=== PATIENT | female | born 1960 | race Caucasian/White ===

== ENCOUNTER 2020-01-23 16:21 | Outpatient (REF) | payer OTHER, SELFPAY | END 2020-01-23 16:22 | disposition home or self-care (01) | LOC: HO.LAB 16:21 | PROVIDERS: Visit Provider Internal Medicine | DX: Z20.828 Contact with and (suspected) exposure to other viral communicable diseases (principal) | CPT/HCPCS: 87635 ==

== ENCOUNTER 2020-01-30 12:37 | Outpatient (REF) | payer OTHER, SELFPAY | END 2020-01-30 12:38 | disposition home or self-care (01) | LOC: HO.LAB 12:37 | PROVIDERS: PCP Internal Medicine; Visit Provider Internal Medicine | DX: Z20.828 Contact with and (suspected) exposure to other viral communicable diseases (principal) | CPT/HCPCS: U0003 ==

== ENCOUNTER 2020-04-23 06:08 | Outpatient (REF) | payer OTHER, SELFPAY | END 2020-04-23 06:09 | disposition home or self-care (01) | LOC: HO.LAB 06:08 | PROVIDERS: Visit Provider Internal Medicine | DX: Z20.822 Contact with and (suspected) exposure to COVID-19 (principal) | CPT/HCPCS: 36415; C9803; U0003 ==

== ENCOUNTER 2020-11-09 08:35 | Outpatient (REF) | payer OTHER, SELFPAY ==
--- NOTE | ~2020-11-09 | XR_ITS ---
EXAMINATION: XR SHOULDER, LEFT CLINICAL INFORMATION: M25.512 - Pain in left shoulder COMPARISON: None TECHNIQUE: Left shoulder is imaged in 3 views. FINDINGS: There is bulky calcific tendinosis in region of distal superior rotator cuff measuring approximately 2.5 cm in length. There is no fracture, dislocation, destructive process. The glenohumeral joint appears normal. The acromioclavicular alignment is normal. XR/XR shoulder LT min 2V IMPRESSION: Bulky calcific tendinosis distal superior rotator cuff.
== END 2020-11-09 08:36 | disposition home or self-care (01) ==
LOC: HO.HMGCX 08:35
PROVIDERS: PCP Internal Medicine; Visit Provider Hospitalist
DX: M25.512 Pain in left shoulder (principal)
CPT/HCPCS: 73030

== ENCOUNTER 2020-11-29 08:36 | Outpatient (REF) | payer OTHER, SELFPAY ==
--- NOTE | ~2020-11-29 | XR_ITS ---
EXAMINATION: XR RIBS, RIGHT CLINICAL INFORMATION: R07.81 - Pleurodynia COMPARISON: Chest radiographs 03/24/2018 TECHNIQUE: Frontal view chest and 3 views of the right ribs are obtained for a total of 4 views. FINDINGS: There is no visible rib fracture or rib destructive process. The lungs are clear. There is no pneumothorax, pleural reaction, airspace consolidation, or effusion. The costophrenic sulci are clear. The heart is within normal size. The hilar and mediastinal contours are normal. XR/XR ribs RT min 3V w CXR1V IMPRESSION: Unremarkable examination.
== END 2020-11-29 08:37 | disposition home or self-care (01) ==
LOC: HO.HMGCX 08:36
PROVIDERS: PCP Internal Medicine; Visit Provider Hospitalist
DX: Z13.89 Encounter for screening for other disorder (principal)
CPT/HCPCS: 71101

== ENCOUNTER 2021-01-22 06:03 | Outpatient (REF) | payer OTHER, SELFPAY ==
[2021-01-22 07:30] LABS: Hematocrit 40.8 % (37-47); Hemoglobin 13.1 g/dl (12.0-16.0); Mean Corpuscular HGB Conc 32.1 g/dl (31.0-35.0); Mean Corpuscular Hemoglobin 28.9 pg (27.0-33.0); Mean Corpuscular Volume 89.9 fL (80-98); Mean Platelet Volume 9.3 fL (9.4-12.3); Platelet Count 335 X10*3/uL (160-400); Red Blood Count 4.54 X10*6/uL (4.20-5.50); Red Cell Distribution Width 12.5 % (11.0-16.0); White Blood Count 7.1 X10*3/uL (4.8-10.8)
[2021-01-22 07:49] LABS: Alanine Aminotransferase 8 U/L (0-31); Albumin Level 4.3 g/dL (3.5-5.0); Alkaline Phosphatase 56 U/L (39-117); Anion Gap 12 (12-20); Aspartate Amino Transferase 17 U/L (5-31); Bilirubin Total 0.6 mg/dL (0.0-1.0); Blood Urea Nitrogen 10 mg/dL (9-16); Calcium 9.4 mg/dL (8.4-10.2); Carbon Dioxide 28 mmol/L (22-29); Chloride 103 mmol/L (96-108); Cholesterol 189 mg/dL; Estimated Glomerular Filt Rate > 60; Glucose Fasting 87 mg/dL (60-99); HDL Cholesterol 39 mg/dL; LDL Cholesterol Calculated 127 mg/dl; Potassium 4.3 mmol/L (3.3-5.1); Sodium 139 mmol/L (135-145); Total Protein 7.1 g/dL (6.5-8.0); Triglycerides 117 mg/dL
== END 2021-01-22 06:04 | disposition home or self-care (01) ==
LOC: HO.LAB 06:03
PROVIDERS: PCP Internal Medicine; Visit Provider Internal Medicine
DX: Z00.00 Encounter for general adult medical examination without abnormal findings (principal); M85.80 Other specified disorders of bone density and structure, unspecified site; Z53.20 Procedure and treatment not carried out because of patient's decision for unspecified reasons
CPT/HCPCS: 36415; 80053; 80061; 85027

== ENCOUNTER 2023-05-21 08:45 | Outpatient (AMB) | payer OTHER, SELFPAY ==
--- NOTE | 2023-05-21 08:52 | MHC.OFFVIS ---
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 She is doing well with no concerns: she thinks she has a prolapse, feeling vaginal pressure, no leakage of urine. Attempting to eat a healthy diet with calcium and vitamin D and stays active with exercise, including Yoga. Currently not sexually active. Denies any vaginal dryness or irritation. STI testing offered; she declines. Last pap smear; 2019. Last mammogram; 2021. Colonoscopy is UTD. Denies any family history of breast, ovarian or colon cancer. She is regular dermatology skin checks. [facility], [facility] Medical History Colonoscopy refused Osteopenia Normal breast exam Normal colonoscopy Normal gynecologic examination Osteoarthritis of shoulders, bilateral Surgical History (Updated 05/21/23 @ 09:05 by Sandy Sullivan CNM) H/O LEEP Tubal ligation status Social History (Updated 05/21/23 @ 08:58 by CAROLE Souza) Household Members Other:: lives with [facility], Housing: House Patient Tobacco Use Status: Former Tobacco user Years Smoked: 30 yrs e-Cigarette/Vaping Use: Never Used service: No Current occupational status: employed Cognitive needs: No Hearing needs: No Vision needs: Yes Female Reproductive History Menstrual control method: permanent sterilization Permanent Sterilization: BTL Menopause type: natural Total pregnancies: 2 Full term: 2 Number of Living Children: 2 Date of last pap smear: 10/23/21 (neg pap and hpv) History of abnormal pap smear: Yes (hx leep 1996) Review of Systems Const All systems reviewed & are unremarkable except as noted in HPI and below Reports as per HPI Eyes Reports no additional complaints ENT Reports no additional complaints Card Reports no additional complaints Resp Reports no additional complaints GI Reports as per HPI and Reports no additional complaints Reports as per HPI Musc Reports no additional complaints Skin/Breast Reports as per HPI Neuro Reports no additional complaints Psych Reports no additional complaints Endo Reports no additional complaints Rey/Lymph Reports no additional complaints Aller/Immun Reports no additional complaints Physical Exam Vital Signs: Last Vital Signs BP 120/76 05/21/23 08:57 BMI result Body Mass Index 25.8 Const General: cooperative, healthy appearing, no acute distress, well developed and alert Orientation/consciousness: patient oriented x3 HEENT Head: Yes normal to inspection Eyes General: appearance normal, both eyes and all related structures Neck Neck: Yes normal visual inspection Thyroid: Thyroid normal Chest Chest palpation & inspection: normal inspection of the chest and other (no puckering, dimpling, peau de orange, retraction, discharge, masses) Breast/axilla inspection: normal inspection of the breasts Breast/axilla palpation: normal palpation of the breasts Resp Effort & Inspection: normal respiratory effort GI Inspection: Yes normal to inspection Palpation (GI): Soft to palpation Rectal Exam - Female: deferred General: Yes bladder normal to palpation External Female Exam: normal external appearance and normal appearance of the urethra Speculum Exam - Vagina: normal appearance of the vagina, normal palpation, normal vaginal discharge and vagina atrophic Speculum Exam - Cervix: normal appearance of the cervix and normal palpation Bimanual exam- vagina & uterus: normal bimanual exam, normal palpation, uterine size normal, bladder normal to palpation, normal palpation and non-tender Bimanual Exam- Adnexa, other: no masses and cystocele Skin General skin exam: no rashes or lesions noted Rashes: no rashes Neuro General: patient oriented x3 Cognition (Neuro): normal cognition Extrem General: Yes normal to inspection Psych Attitude: cooperative Thought process: Normal thought process present Assessment & Plan Assessment & Plan (1) Encounter for well woman exam with routine gynecological exam: Code(s): Z01.419 - Encounter for gynecological examination (general) (routine) without abnormal findings Plan Discussed: Current recommendations for pap smears per ASCCP guidelines. Breast awareness, periodic self breast exams and yearly mammogram. Maintain a healthy lifestyle, well balanced diet including Calcium 1,200 mg and Vitamin D 600 IU daily, and routine exercise. Discussed referral to uro Gyne for consultation regarding mild cystocele and her vaginal pressure. She is in the midst of changing jobs and getting a new insurance and agrees to call the office if needing a referral. Advised to consider pelvic floor strengthening as another alternative she is happy with that approach instead of surgical consult. Use of condoms for STI prevention if indicated. Contact the office with any postmenopausal bleeding. Patient verbalizes understanding and agrees to the plan of care. She was given opportunity to ask questions and all questions were answered to the best of my ability. RTO in 1 year for annual horologist apprentice exam. This note is constructed using voice recognition software. While every effort has been made to ensure accuracy, records management clerk errors may have been included. Orders: Orders MM tomosynthesis screening BI Today Z12.31 - Encounter for screening mammogram for malignant neoplasm of breast Coding Level of Care Code New Pt Prev Care 40-64y(52377) Diagnoses Encounter for well woman exam with routine gynecological exam Z01.419
[2023-05-21 08:57] VITALS: BP 120/76; BMI 25.8
== END 2023-05-21 09:23 | disposition home or self-care (01) ==
PROVIDERS: PCP Internal Medicine; Visit Provider Advanced Practice Midwife
DX: Z01.419 Encounter for gynecological examination (general) (routine) without abnormal findings (principal)
CPT/HCPCS: 99386

== ENCOUNTER → 2023-05-21 08:45 | Outpatient (BNVA) | payer OTHER, SELFPAY | PROVIDERS: PCP Internal Medicine; Visit Provider Advanced Practice Midwife | DX: Z01.419 Encounter for gynecological examination (general) (routine) without abnormal findings (principal) | CPT/HCPCS: 99386 ==

== ENCOUNTER 2023-06-25 07:39 | Outpatient (REF) | payer OTHER, SELFPAY | END 2023-06-25 07:40 | disposition home or self-care (01) | LOC: HO.MAMMO 07:39 | PROVIDERS: PCP Internal Medicine; Visit Provider Advanced Practice Midwife | DX: Z12.31 Encounter for screening mammogram for malignant neoplasm of breast (principal) | CPT/HCPCS: 77063; 77067 ==

== ENCOUNTER → 2023-06-25 08:00 | Outpatient (BNV) | payer OTHER, SELFPAY | PROVIDERS: PCP Internal Medicine; Visit Provider Radiology Diagnostic Radiology | DX: Z12.31 Encounter for screening mammogram for malignant neoplasm of breast (principal) | CPT/HCPCS: 77063; 77067 ==

== ENCOUNTER 2023-08-14 09:11 | Outpatient (AMB) | payer BC, SELFPAY ==
--- NOTE | 2023-08-14 09:29 | A.OFFPC_ITS ---
Vital Signs 08/14/23 09:31 Height 5 ft 2 in Weight 141 lb BMI 25.8 BP 122/80 Blood Pressure Location Rt brachial Position Sitting Pulse 75 Pulse Source Pulse Oximeter Pulse Oximetry (%) 96 Oxygen Delivery Method Room Air Intake Visit Reasons: PE Intake Note: Pt is here today for PE. Allergies shellfish Allergy (Unknown, Uncoded 08/14/23 09:32) anaphylaxis Shellfish- Scallops Allergy (Unknown, Uncoded 08/14/23 09:32) anaphylaxis Medication List - Last Reconciled 08/14/23 by Kelly Ruffin MD albuterol sulfate 90 mcg/actuation 2 puffs inhalation Q6H PRN fluticasone propionate 50 mcg/actuation (Flonase Allergy Relief) 1 spray intranasal DAILY Tobacco use date assessed: 08/14/23 Dental Screening Dental Screen Date: 08/14/23 Did you have a dental visit in the last 12 months?: Yes Did you have a dental problem in the last 6 months where you did not have access to dental care?: No Was dental information given to patient?: Patient has dentist HPI PE HPI Details Pt presents for PE. PFSH Medical History Colonoscopy refused Osteopenia Normal breast exam Normal colonoscopy Normal gynecologic examination Osteoarthritis of shoulders, bilateral Surgical History H/O LEEP Tubal ligation status Social History Household Members Other:: lives with [facility], Housing: House Patient Tobacco Use Status: Former Tobacco user Years Smoked: 30 yrs e-Cigarette/Vaping Use: Never Used service: No Current occupational status: employed Cognitive needs: No Hearing needs: No Vision needs: Yes Questionnaire PHQ-9 Over the last 2 weeks, how often have you been bothered by any of the following problems? 1. Little interest or pleasure in doing things: not at all 2. Feeling down, depressed, or hopeless: not at all 3. Trouble falling or staying asleep, or sleeping too much: nearly every day 4. Feeling tired or having little energy: nearly every day 5. Poor appetite or overeating: not at all 6. Feeling bad about yourself - or that you are a failure or have let yourself or your family down: not at all 7. Trouble concentrating on things, such as reading the newspaper or watching television: not at all 8. Moving or speaking so slowly that other people could have noticed. Or the opposite - being so fidgety or restless that you have been moving around a lot more than usual: not at all 9. Thoughts that you would be better off or of hurting yourself in some way: not at all Total score: 6 Depression Screening Interpretation: Negative Depression Screening Done: Yes Source: Developed by Drs. Esvin Rodriguez, Lisbet Upton, Deni Caceres and colleagues, with an educational juan m from [employer]. Thrive Questionnaire Date Thrive assessed: 08/14/23 I am a: Patient What is your living situation today?: I have a steady place to live Within the past 12 months, did the food you bought not last and you didn't have the money to get more?: Never true Within the past 12 months, did you worry whether your food would run out before you got money to buy more?: Never true Do you have trouble paying for medicines?: No Do you have trouble getting transportation to medical appointments?: No Do you have trouble paying your heating and electricity bill?: No Do you have trouble taking care of your child, family member or friend?: No Do you have trouble with day-to-day activities such as bathing, preparing meals, shopping, managing finances, etc.?: No Are you currently unemployed and looking for a job?: No Are you interested in more education?: No Please select the resources that you would like help with: None THRIVE Score: 0 AUDIT C Alcohol Use Questionnaire (AUDIT-C) 1. How often do you have a drink containing alcohol?: Never 3. How often do you have six or more drinks on one occasion?: Never Total Score: 0 JOB-7 AMB Questionnaire JOB-7 Date JOB - 7 assessed: 08/14/23 Feeling nervous, anxious, or on edge: 0 = Not at all Not being able to stop or control worryin = Not at all Worrying too much about different things: 0 = Not at all Trouble relaxin = Not at all Being so restless that it is hard to sit still: 0 = Not at all Becoming easily annoyed or irritable: 0 = Not at all Feeling afraid as if something awful might happen: 0 = Not at all Total JOB-7 score (0-4 normal; 5-9 mild; 10-14 moderate; 15-21 severe): 0 Source: Developed by Drs. Esvin Rodriguez, Lisbet Upton, Deni Caceres and colleagues, with an educational juan m from [employer]. Review of Systems Const All systems reviewed & are unremarkable except as noted in HPI and below Reports no additional complaints Eyes Reports no additional complaints ENT Reports no additional complaints Card Reports no additional complaints Resp Reports no additional complaints GI Reports no additional complaints Reports no additional complaints Physical exam (Primary Care) Vital Signs: Last Vital Signs Pulse 75 08/14/23 09:31 BP 122/80 08/14/23 09:31 Pulse Ox 96 08/14/23 09:31 Oxygen Delivery Method Room Air 08/14/23 09:31 BMI result Body Mass Index 25.8 Tobacco/Smoking Status: Tobacco use Status Tobacco use date assessed 08/14/23 08/14/23 09:36 Patient Tobacco Use Status Former Tobacco user 08/14/23 09:30 e-Cigarette/Vaping Use Never Used 08/14/23 09:30 PHQ-9: PHQ-9 Score PHQ-9: Total score 6 08/14/23 09:36 Depression Screening Interpretation: Negative Thrive Assessment: Date of Thrive Assessment Date Thrive assessed 08/14/23 08/14/23 09:36 Const General: no acute distress HENMT Head: Yes normal to inspection Ears: hearing grossly normal bilaterally Face and sinus: Yes normal facial exam Mouth: Normal oral and palatal mucosa present Throat: Yes posterior oropharynx normal Eyes General: appearance normal, both eyes and all related structures Neck Neck: Yes supple Resp Effort & Inspection: normal respiratory effort Auscultation: clear to auscultation bilaterally Cardio Rhythm: regular rhythm Heart sounds: S1 normal heart sound present and S2 normal heart sound present GI Inspection: Yes normal to inspection Palpation (GI): Soft to palpation Percussion: Yes normal to percussion Auscultation: normal bowel sounds Assessment and Plan Assessment & Plan (1) Annual physical exam: Comment: [facility] Code(s): Z00.00 - Encounter for general adult medical examination without abnormal findings Plan: Well-balanced diet regular physical activity discussed with the patient she is up-to-date with the mammogram and Pap smear by coal pulverizing operator. Patient declined colonoscopy Cologuard will be sent. She will return for fasting blood work (2) Osteopenia: Comment: DEXA by coal pulverizing operator Code(s): M85.80 - Other specified disorders of bone density and structure, unspecified site Plan: Continue vitamin-D supplement regular physical activity. (3) Colonoscopy refused: Comment: Cologuard ordered 07/2023 Code(s): Z53.20 - Procedure and treatment not carried out because of patient's decision for unspecified reasons Orders: Orders Complete Blood Count Auto Diff Today M85.80 - Other specified disorders of bone density and structure, unspecified site, Z00.00 - Encounter for general adult medical examination without abnormal findings, Z53.20 - Procedure and treatment not carried out because of patient's decision for unspecified reasons Comprehensive [place]. Panel Fast Today M85.80 - Other specified disorders of bone density and structure, unspecified site, Z00.00 - Encounter for general adult medical examination without abnormal findings, Z53.20 - Procedure and treatment not carried out because of patient's decision for unspecified reasons Lipid Panel Today M85.80 - Other specified disorders of bone density and structure, unspecified site, Z00.00 - Encounter for general adult medical examination without abnormal findings, Z53.20 - Procedure and treatment not carried out because of patient's decision for unspecified reasons TSH reflex Free T4 Today M85.80 - Other specified disorders of bone density and structure, unspecified site, Z00.00 - Encounter for general adult medical examination without abnormal findings, Z53.20 - Procedure and treatment not carried out because of patient's decision for unspecified reasons Vitamin D 25-OH Total Today M85.80 - Other specified disorders of bone density and structure, unspecified site, Z00.00 - Encounter for general adult medical examination without abnormal findings, Z53.20 - Procedure and treatment not carried out because of patient's decision for unspecified reasons Referrals Cologuard Test M85.80 - Other specified disorders of bone density and structure, unspecified site, Z00.00 - Encounter for general adult medical examination without abnormal findings, Z12.11 - Encounter for screening for malignant neoplasm of colon, Z12.12 - Encounter for screening for malignant neoplasm of rectum, Z53.20 - Procedure and treatment not carried out because of patient's decision for unspecified reasons Medications: New albuterol sulfate 90 mcg/actuation 2 puffs inhalation Q6H PRN 6.7 grams 2RF shortness of breath or wheezing Refilled fluticasone propionate 50 mcg/actuation (Flonase Allergy Relief) administer into each nostril 1 spray intranasal DAILY 16 grams 4RF Coding Level of Care Code Est Pt Prev Care 40-64y(36652) Diagnoses Annual physical exam Z00.00 Osteopenia M85.80 Colonoscopy refused Z53.20
[2023-08-14 09:31] VITALS: BP 122/80; PULSE 75; O2SAT 96; BMI 25.8
== END 2023-08-14 09:58 | disposition home or self-care (01) ==
PROVIDERS: PCP Internal Medicine; Visit Provider Internal Medicine
DX: Z00.00 Encounter for general adult medical examination without abnormal findings (principal); M85.80 Other specified disorders of bone density and structure, unspecified site; Z53.20 Procedure and treatment not carried out because of patient's decision for unspecified reasons
CPT/HCPCS: 99396

== ENCOUNTER 2023-08-29 06:37 | Outpatient (REF) | payer BC, SELFPAY ==
[2023-08-29 11:52] LABS: Basophils Absolute Auto 0.1 X10*3/uL (0.0-0.2); Basophils Percent Auto 0.7 % (0-2); Eosinophils Absolute Auto 0.3 X10*3/uL (0.0-0.4); Eosinophils Percent Auto 4.1 % (0-4); Hematocrit 39.9 % (37.0-47.0); Hemoglobin 13.1 g/dl (12.0-16.0); Imm Gran Abs Auto 0.03 X10*3/uL (0.00-0.03); Imm Gran Pct Auto 0.4 % (0.0-0.4); Lymphocytes Absolute Auto 1.9 X10*3/uL (1.2-4.9); Lymphocytes Percent Auto 24.5 % (20-40); MANUAL DIFF FLAG NO; Mean Corpuscular HGB Conc 32.8 g/dl (31.0-35.0); Mean Corpuscular Hemoglobin 29.1 pg (27.0-33.0); Mean Corpuscular Volume 88.7 fL (80.0-98.0); Mean Platelet Volume 9.5 fL (9.4-12.3); Monocytes Absolute Auto 0.6 X10*3/uL (0.1-1.2); Monocytes Percent Auto 7.3 % (2-11); Neutrophils Absolute Auto 4.8 x10*3/uL (2.0-8.3); Platelet Count 309 X10*3/uL (160-400); Red Cell Distribution Width 12.7 % (11.0-16.0); White Blood Count 7.6 X10*3/uL (4.8-10.8)
[2023-08-29 12:30] LABS: Alanine Aminotransferase 10 U/L (0-31); Albumin Level 4.2 g/dL (3.5-5.0); Alkaline Phosphatase 44 U/L (39-117); Anion Gap 11 (12-20); Aspartate Amino Transferase 18 U/L (5-31); Bilirubin Total 0.4 mg/dL (0.0-1.0); Blood Urea Nitrogen 15 mg/dL (9-16); Calcium 9.4 mg/dL (8.4-10.2); Carbon Dioxide 27 mmol/L (22-29); Chloride 107 mmol/L (96-108); Cholesterol 206 mg/dL (<200); Estimated Glomerular Filt Rate > 60; Glucose Fasting 97 mg/dL (60-99); HDL Cholesterol 46 mg/dL (>40); LDL Cholesterol Calculated 143 mg/dL (<100); Potassium 4.1 mmol/L (3.3-5.1); Sodium 141 mmol/L (135-145); Total Protein 7.1 g/dL (6.5-8.0); Triglycerides 89 mg/dL (<150)
[2023-08-29 12:33] LABS: TSH reflex Free T4 1.66 uIU/mL (0.32-4.0); Vitamin D 25-OH Total 33.9 ng/mL (>30)
== END 2023-08-29 06:38 | disposition home or self-care (01) ==
LOC: HO.HMGCLDS 06:37
PROVIDERS: PCP Internal Medicine; Visit Provider Internal Medicine
DX: Z00.00 Encounter for general adult medical examination without abnormal findings (principal); M85.80 Other specified disorders of bone density and structure, unspecified site; Z53.20 Procedure and treatment not carried out because of patient's decision for unspecified reasons
CPT/HCPCS: 36415; 80053; 80061; 82306; 84443; 85025

== ENCOUNTER 2024-09-13 07:48 | Outpatient (AMB) | payer BC, SELFPAY ==
--- OUTSIDE RECORDS SUMMARY | 2024-09-13 07:52 | XMS_ITS | Clinical Summary ---
[facility] Organization [facility] Address [address] [place] [address] Care Team Providers Care Specialty Cook Name Role Phone Nadege Calderon MD Primary Care Provider [phone] Allergies Active Allergy Reactions Criticality Noted Date Comments Ciprofloxacin-Hydrocortisone Low 016 rash Naproxen Nausea And Vomiting 04/16/2009 Shellfish Containing Products Nausea And Vomiting 02/07/2013 Medications fluticasone propionate (FLONASE) 50 mcg/actuation nasal spray 2 Sprays by Each Nare route every morning. 04/26/2015 Active methocarbamoL (ROBAXIN) 750 mg tablet Take 1 Tab by mouth 3 times daily. 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 Overview (03/21/2024): LEEP Depression 10/05/2006 Immunizations Name Administration Dates Next Due Influenza, Unspecified 12/28/2014,01/06/2014,03/2012 Td Tetanus diptheria (Tdvax) 7yo and older 03/30 Tdap Tetanus diptheria acell ular pertussis (Boostrix; Adacel) 7yo and older 12/28/2014,01/28/2008 Surgical History Surgery Date Site/Laterality Comments TUBAL LIGATION PROCEDURE: HISTORICAL TUBAL LIGATION CERVICAL BIOPSY W/ LOOP ELECTRODE EXCISION PROCEDURE: WA CONIZATION CERVIX W/WO D&C RPR ELTRD EXC; COMMENT: LEEP OTHER SURGICAL HISTORY 02/11 PROCEDURE: MAMMOGRAM COLONOSCOPY 07/06/15 PROCEDURE: HISTORICAL COLONOSCOPY; COMMENT: adenoma; incomploete procedure; repeat under propofol in 6 months Medical History Medical History Date Comments 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 DX:Carcinoma in situ of cervix uteri; COMMENT: LEEP Depressive disorder, not els ewhere classified 10/05/2006 DX:Depressive disorder, not elsewhere classified Allergic rhinitis, cause unspecified 10/06/2006 DX:Allergic rhinitis, cause unspecified Asthma 05/23/2010 DX:Asthma Family History Medical History Relation Name Comments Other: seizure disorder Brother 1 live r mass, age 58 Nephrolithiasis Brother 2 Nephrolithiasis Daughter 1 Hypertension Father pacemaker, alzh eimers, renal failure 87 Asthma Mother Nephrolithiasis Sister 1 Relation Name Status Comments Brother 1 Brother 2 Brother 3 Daughter 1 Daughter 2 Father Mother Sister 1 Sister 2 Social History Tobacco Use Types Packs/Day Years Used Date Smoking Tobacco: Former Cigarettes Q uit: 12/08/2008 Smokeless Tobacco: Former Alcohol Use Standard Drinks/Week Comments No 0 (1 standard drink = 0.6 oz pur e alcohol) Comments Unknown Sex and Gender Information Value Date Recorded Sex Assigned at Not on file Legal Sex Female 7:20 PM EST Gender Identity Not on file Sexual Orientation Not on file Obstetrics History Plan of Treatment Health Maintenance Due Date Last Done Comments Breast Cancer Screening 1962 Pneumococcal Vaccine: 50+ Years (1 of 2 - PCV) 1981 Pneumococcal Vaccine: Pediatrics (0 to 5 Years) and At-Risk Patients (6 to 64 Years) (1 of 2 - PCV) 1981 Zoster Vaccines (1 of 2) 2012 Cervical Cancer Screening: P ap Smear 04/02/2019 04/02/2016 RSV Immunization Adult Patients (1 - Risk 60-74 years 1-dose series) 2022 COVID-19 Vaccine ( - 2023-2 5 season) 2023 Colorectal Cancer Screening: Colonoscopy 03/22/2024 Depression Screening 03/22/2024 HIV Screening 03/22/2024 Social Influencers of Health Screening 03/22/2024 Influenza Vaccine (Season Ended) 2024 12/28/2014, 01/06/2014, 12/28/2012 DTaP,Tdap,and Td Vaccines (4 - Td or Tdap) 12/28/2024 12/28/2014, 01/28/2008, 03/30/1998 Hepatitis C Screening Completed 02/07/2013 HIB Vaccines Aged Out No longer eligi ble based on patient's age to complete this topic HPV Vaccines Aged Out No longer eligi ble based on patient's age to complete this topic Hepatitis A Vaccines Aged Out No long er eligible based on patient's age to complete this topic Hepatitis B Vaccines Aged Out No long er eligible based on patient's age to complete this topic IPV Vaccines Aged Out No longer eligi ble based on patient's age to complete this topic MMR Vaccines Aged Out No longer eligi ble based on patient's age to complete this topic Meningococcal ACWY Vaccine Aged Out N o longer eligible based on patient's age to complete this topic Meningococcal B Vaccine Aged Out No l onger eligible based on patient's age to complete this topic RSV Immunization Patients Under 20 months Aged Out No longer eligible b ased on patient's age to complete this topic Varicella Vaccines Aged Out No longer eligible based on patient's age to complete this topic Procedures Procedure Name Priority Date/Time Associated Diagnosis Comments PAP SMEAR Routine 04/02/2016 HEPATITIS C SCREENING Routine 02/07/2013 from Last 3 Months or Most Recently Relevant to Health Maintenance Results * Pap Smear (04/02/2016) Pap smear no interpretation , abstracted Historical Provider HEALTH MAINTENANCE Final Result * Hepatitis C Screening (02/07/2013) Pathologist [facility] Hepatitis C Screening abstracted us Historical Provider HEALTH MAINTENANCE Final Result from Last 3 Months or Most Recently Relevant to Health Maintenance Care Teams Specialty Cook Relationship Specialty Start Date End Date Nadege Calderon MD [address] [place] [id number] PCP - General 08/03/01
--- NOTE | 2024-09-13 08:08 | MHC.PC.OV ---
Vital Signs 09/13/24 08:09 Height 5 ft 2 in Weight 131 lb BMI 24.0 BP 104/68 Blood Pressure Location Rt brachial Position Sitting Respiration 18 Pulse 64 Pulse Source Pulse Oximeter Temp 98.2 F Temp Source Oral Pulse Oximetry (%) 99 Oxygen Delivery Method Room Air Intake Visit Reasons: PE Intake Note: Pt is here today for PE. Allergies shellfish Allergy (Unknown, Uncoded 09/13/24 08:10) anaphylaxis Shellfish- Scallops Allergy (Unknown, Uncoded 09/13/24 08:10) anaphylaxis Medication List - Last Reconciled 09/13/24 by Kelly Ruffin MD albuterol sulfate 90 mcg/actuation 2 puffs inhalation Q6H PRN fluticasone propionate 50 mcg/actuation (Flonase Allergy Relief) 1 spray intranasal DAILY Tobacco use date assessed: 09/13/24 Dental Screening Dental Screen Date: 09/13/24 Did you have a dental visit in the last 12 months?: Yes Did you have a dental problem in the last 6 months where you did not have access to dental care?: No Was dental information given to patient?: Patient has dentist HPI PE HPI Details Pt presents for PE. Pt reports episodes of palpitations and lightheadedness after eating at work at night since she has started working 3rd shift a few months ago. The symptoms will last up to half an hour. She has been taking some glucose tablets that she believes helps with the symptoms. Patient denies any nausea vomiting sweating chest pain difficulty breathing associated with the symptoms. Patient is physically active denies any exercise induced palpitations. She has been eating well-balanced diet, trying to decrease simple carbohydrates intake and noticed slight improvement in her symptoms. [facility] Medical History Colonoscopy refused Osteopenia Normal breast exam Normal colonoscopy Normal gynecologic examination Osteoarthritis of shoulders, bilateral Surgical History H/O LEEP Tubal ligation status Social History Household Members Other:: lives with [facility], Housing: House Patient Tobacco Use Status: Former Tobacco user Years Smoked: 30 yrs e-Cigarette/Vaping Use: Never Used service: No Current occupational status: employed Cognitive needs: No Hearing needs: No Vision needs: Yes Questionnaire PHQ-9 Over the last 2 weeks, how often have you been bothered by any of the following problems? 1. Little interest or pleasure in doing things: several days 2. Feeling down, depressed, or hopeless: not at all 3. Trouble falling or staying asleep, or sleeping too much: not at all 4. Feeling tired or having little energy: several days 5. Poor appetite or overeating: not at all 6. Feeling bad about yourself - or that you are a failure or have let yourself or your family down: not at all 7. Trouble concentrating on things, such as reading the newspaper or watching television: not at all 8. Moving or speaking so slowly that other people could have noticed. Or the opposite - being so fidgety or restless that you have been moving around a lot more than usual: not at all 9. Thoughts that you would be better off or of hurting yourself in some way: not at all Total score: 2 Depression Screening Interpretation: Negative Depression Screening Done: Yes 93548 - PHQ-9 Billing: Yes Source: Developed by Drs. Esvin Rodriguez, Lisbet Upton, Deni Caceres and colleagues, with an educational juan m from [employer]. Thrive Questionnaire Date Thrive assessed: 09/13/24 I am a: Patient What is your living situation today?: I have a steady place to live Within the past 12 months, did the food you bought not last and you didn't have the money to get more?: Never true Within the past 12 months, did you worry whether your food would run out before you got money to buy more?: Never true Do you have trouble paying for medicines?: No Do you have trouble getting transportation to medical appointments?: No Do you have trouble paying your heating and electricity bill?: No Do you have trouble taking care of your child, family member or friend?: No Do you have trouble with day-to-day activities such as bathing, preparing meals, shopping, managing finances, etc.?: No Are you currently unemployed and looking for a job?: No Are you interested in more education?: No Please select the resources that you would like help with: None Currently or been in a relationship where the following occur: I choose not to answer THRIVE Score: 0 AUDIT C Alcohol Use Questionnaire (AUDIT-C) 1. How often do you have a drink containing alcohol?: Never 3. How often do you have six or more drinks on one occasion?: Never Total Score: 0 JOB-7 AMB Questionnaire JOB-7 Date JOB - 7 assessed: 09/13/24 Feeling nervous, anxious, or on edge: 0 = Not at all Not being able to stop or control worryin = Not at all Worrying too much about different things: 0 = Not at all Trouble relaxin = Not at all Being so restless that it is hard to sit still: 0 = Not at all Becoming easily annoyed or irritable: 0 = Not at all Feeling afraid as if something awful might happen: 0 = Not at all Total JOB-7 score (0-4 normal; 5-9 mild; 10-14 moderate; 15-21 severe): 0 Source: Developed by Drs. Esvin Rodriguez, Lisbet Upton, Deni Caceres and colleagues, with an educational juan m from [employer]. JOB-7 Assessment Billing JOB-7 Assessment Tool: JOB-7 Assessment 65358 Review of Systems Const All systems reviewed & are unremarkable except as noted in HPI and below Eyes Reports no additional complaints ENT Reports no additional complaints Card Reports no additional complaints Resp Reports no additional complaints GI Reports no additional complaints Reports no additional complaints Musc Reports no additional complaints Physical exam (Primary Care) Vital Signs: Last Vital Signs Temp 98.2 F 09/13/24 08:09 Pulse 64 09/13/24 08:09 Resp 18 09/13/24 08:09 BP 104/68 09/13/24 08:09 Pulse Ox 99 09/13/24 08:09 Oxygen Delivery Method Room Air 09/13/24 08:09 BMI result Body Mass Index 24.0 Tobacco/Smoking Status: Tobacco use Status Tobacco use date assessed 09/13/24 09/13/24 08:14 Patient Tobacco Use Status Former Tobacco user 09/13/24 08:14 e-Cigarette/Vaping Use Never Used 09/13/24 08:14 PHQ-9: PHQ-9 Score PHQ-9: Total score 2 09/13/24 08:15 Depression Screening Interpretation: Negative Thrive Assessment: Date of Thrive Assessment Date Thrive assessed 09/13/24 09/13/24 08:14 Currently or been in a relationship where the following occur: I choose not to answer Const General: no acute distress HENMT Head: Yes normal to inspection Ears: hearing grossly normal bilaterally Face and sinus: Yes normal facial exam Mouth: Normal oral and palatal mucosa present Throat: Yes posterior oropharynx normal Eyes General: appearance normal, both eyes and all related structures Neck Neck: Yes no lymphadenopathy and Yes supple Resp Effort & Inspection: normal respiratory effort Auscultation: clear to auscultation bilaterally Cardio Rhythm: regular rhythm Heart sounds: S1 normal heart sound present and S2 normal heart sound present GI Inspection: Yes normal to inspection Palpation (GI): Soft to palpation Percussion: Yes normal to percussion Auscultation: normal bowel sounds Coding Level of Care Code Est Pt Prev Care 40-64y(84495) Diagnoses Annual physical exam Z00.00 Palpitations R00.2 Additional Codes JOB-7 Assessment Billing - JOB-7 Assessment Tool: JOB-7 Assessment 20985 ([id number]) PHQ-9 - 48926 - PHQ-9 Billing: Yes ([id number]) Assessment & Plan Assessment & Plan (1) Annual physical exam: Comment: [facility] May 2023, negative Cologuard May 2023 Code(s): Z00.00 - Encounter for general adult medical examination without abnormal findings Category: Medical Plan: Well-balanced diet regular physical activity discussed with the patient she will have a fasting blood work. (2) Palpitations: Code(s): R00.2 - Palpitations Category: Medical Plan: EKG showed normal sinus rhythm no ST-T changes. Fasting blood work will be obtained 3 day Holter and echocardiogram to evaluate for palpitations. Patient was advised to avoid simple carbohydrates eat 3 well-balanced meals and snacks in between. Orders: Orders Comprehensive [place]. Panel Fast Today Z00.00 - Encounter for general adult medical examination without abnormal findings Hemoglobin A1c Today Z00.00 - Encounter for general adult medical examination without abnormal findings TSH reflex Free T4 Today Z00.00 - Encounter for general adult medical examination without abnormal findings Lipid Panel Today Z00.00 - Encounter for general adult medical examination without abnormal findings Complete Blood Count Auto Diff Today Z00.00 - Encounter for general adult medical examination without abnormal findings Vitamin D 25-OH Total Today Z00.00 - Encounter for general adult medical examination without abnormal findings ECG 3 day holter monitor Today R00.2 - Palpitations CA echo transthoracic complete Today R00.2 - Palpitations Medications: Refilled albuterol sulfate 90 mcg/actuation 2 puffs inhalation Q6H PRN 6.7 grams 2RF shortness of breath or wheezing fluticasone propionate 50 mcg/actuation (Flonase Allergy Relief) administer into each nostril 1 spray intranasal DAILY 16 grams 4RF
[2024-09-13 08:09] VITALS: BP 104/68; PULSE 64; RESP 18; TEMP 36.8; O2SAT 99; BMI 24.0
== END 2024-09-13 08:52 | disposition home or self-care (01) ==
LOC: HO.HMCC 07:49
PROVIDERS: PCP Internal Medicine; Visit Provider Internal Medicine
DX: Z00.00 Encounter for general adult medical examination without abnormal findings (principal); R00.2 Palpitations

== ENCOUNTER → 2024-09-13 07:48 | Outpatient (BNVA) | payer BC, SELFPAY | PROVIDERS: PCP Internal Medicine; Visit Provider Internal Medicine | DX: Z00.00 Encounter for general adult medical examination without abnormal findings (principal); R00.2 Palpitations; R42 Dizziness and giddiness | CPT/HCPCS: 96127 ==

== ENCOUNTER 2024-09-17 06:32 | Outpatient (REF) | payer BC, SELFPAY ==
--- OUTSIDE RECORDS SUMMARY | 2024-09-17 06:34 | XMS_ITS | Clinical Summary ---
[facility] [address] [place] [address] Care Team Providers Care Nuclear Auxiliary Operator Name Role Phone Nadege Calderon MD Primary Care Provider [phone] Allergies Active Allergy Reactions Criticality Noted Date [...] CERVICAL BIOPSY W/ LOOP ELECTRODE EXCISION PROCEDURE: [place] CONIZATION CERVIX W/WO D&C RPR ELTRD EXC; [...] Result * Hepatitis C Screening (02/07/2013) Pathologist [facility] Hepatitis C Screening abstracted us Historical Provider HEALTH MAINTENANCE Final Result from Last 3 Months or Most Recently Relevant to Health Maintenance Care Teams Nuclear Auxiliary Operator Relationship Specialty Start Date End Date Nadege Calderon MD [address] [place] [id number] PCP - General 08/03/01
[2024-09-17 11:20] LABS: MANUAL DIFF FLAG NO
[2024-09-17 11:25] LABS: Basophils Absolute Auto 0.1 X10*3/uL (0.0-0.2); Basophils Percent Auto 0.6 % (0-2); Eosinophils Absolute Auto 0.3 X10*3/uL (0.0-0.4); Eosinophils Percent Auto 4.3 % (0-4); Hematocrit 38.3 % (37.0-47.0); Hemoglobin 12.6 g/dl (12.0-16.0); Imm Gran Abs Auto 0.02 X10*3/uL (0.00-0.03); Imm Gran Pct Auto 0.3 % (0.0-0.4); Lymphocytes Percent Auto 24.9 % (20-40); Mean Corpuscular HGB Conc 32.9 g/dl (31.0-35.0); Mean Corpuscular Hemoglobin 29.5 pg (27.0-33.0); Mean Corpuscular Volume 89.7 fL (80.0-98.0); Mean Platelet Volume 9.4 fL (9.4-12.3); Monocytes Absolute Auto 0.6 X10*3/uL (0.1-1.2); Monocytes Percent Auto 7.3 % (2-11); Neutrophils Absolute Auto 4.9 x10*3/uL (2.0-8.3); Neutrophils Percent Auto 62.6 % (45-73); Platelet Count 326 X10*3/uL (160-400); Red Blood Count 4.27 X10*6/uL (4.20-5.50); Red Cell Distribution Width 12.6 % (11.0-16.0); White Blood Count 7.8 X10*3/uL (4.8-10.8)
[2024-09-17 11:32] LABS: Estimated Average Glucose 105 mg/dL; Hemoglobin A1C 114.7115 umol/L; Hemoglobin A1c % 5.3 % (<6.0)
[2024-09-17 11:40] LABS: Alanine Aminotransferase 14 U/L (0-31); Albumin Level 4.4 g/dL (3.5-5.0); Alkaline Phosphatase 46 U/L (39-117); Anion Gap 11 (12-20); Aspartate Amino Transferase 25 U/L (5-31); Bilirubin Total 0.4 mg/dL (0.0-1.0); Blood Urea Nitrogen 12 mg/dL (9-16); Calcium 9.2 mg/dL (8.4-10.2); Carbon Dioxide 26 mmol/L (22-29); Chloride 106 mmol/L (96-108); Cholesterol 197 mg/dL (<200); Estimated Glomerular Filt Rate > 60; Glucose Fasting 86 mg/dL (60-99); HDL Cholesterol 49 mg/dL (>40); LDL Cholesterol Calculated 132 mg/dL (<100); Sodium 139 mmol/L (135-145); Triglycerides 83 mg/dL (<150)
[2024-09-17 11:57] LABS: TSH reflex Free T4 0.91 uIU/mL (0.32-4.0); Vitamin D 25-OH Total 27.5 ng/mL (>30)
== END 2024-09-17 06:33 | disposition home or self-care (01) ==
LOC: HO.HMGCLDS 06:32
PROVIDERS: PCP Internal Medicine; Visit Provider Internal Medicine
DX: Z00.00 Encounter for general adult medical examination without abnormal findings (principal); Z13.1 Encounter for screening for diabetes mellitus; Z13.0 Encounter for screening for diseases of the blood and blood-forming organs and certain disorders involving the immune mechanism; Z13.220 Encounter for screening for lipoid disorders; Z13.29 Encounter for screening for other suspected endocrine disorder; Z13.228 Encounter for screening for other metabolic disorders
CPT/HCPCS: 36415; 80053; 80061; 82306; 83036; 84443; 85025

== ENCOUNTER → 2024-10-27 07:42 | Outpatient (REF) | payer BC, SELFPAY ==
--- OUTSIDE RECORDS SUMMARY | 2024-10-27 07:44 | XMS_ITS | Clinical Summary ---
[facility] Address [address] [place] [address] Care Team Providers Care Digital Media Director Name Role Phone Nadege Calderon MD Primary Care Provider Allergies Active Allergy Reactions Criticality Noted Date [...] CERVICAL BIOPSY W/ LOOP ELECTRODE EXCISION PROCEDURE: [place] CONIZATION CERVIX W/WO D&C RPR ELTRD EXC; [...] Years (1 of 2 - PCV) 1981 Zoster Vaccines (1 of 2) 2012 Cervical Cancer Screening: P ap Smear 04/02/2019 04/02/2016 RSV Immunization Adult Patients (1 - Risk 60-74 years 1-dose series) 2022 COVID-19 Vaccine (1 - 2023-2 5 season) 2023 Colorectal Cancer Screening: Colonoscopy 03/22/2024 HIV Screening 03/22/2024 Social Influencers of Health Screening 03/22/2024 Depression Screening 03/30/2024 Influenza Vaccine (#1) 2024 5, 01/06/2014, 12/28/2012 DTaP,Tdap,and Td Vaccines (4 - [...] Final Result * Hepatitis C Screening (02/07/2013) Hepatitis C Screening abstracted us Historical Provider HEALTH MAINTENANCE Final Result from Last 3 Months or Most Recently Relevant to Health Maintenance Care Teams Digital Media Director Relationship Specialty Start Date End Date Nadege Calderon MD [address] [place] [address] PCP - General 08/03/01
--- NOTE | 2024-10-27 07:47 | HM_ITS ---
* Total monitoring time 3 days. * Underlying rhythm is sinus with an average rate of 73/Min. * Rare supraventricular ectopy. * Rare ventricular ectopy. * No significant pauses or high-grade AV blocks. * No patient markers or diary events. MTDD
--- NOTE | 2024-10-27 07:47 | CA_ITS ---
Transthoracic Echocardiogram Patient (Last, First, Middle): Carola Mcrae T Gender: Female Date of : 1960 Age: 63 Procedure Date: 10/27/2024 Procedure Type: Transthoracic Echocardiogram Location: OP Height: 160.02 cm Weight: 56.7 kg BSA: 1.58 m2 Heart Rate: bpm BP: 110 / 70 mmHg Coach Mechanic: VEE/CRISTINA Referring MD: Kelly Ruffin MD Graphic Designer: Joseph Mackey MD Symptoms: R00.2 - Palpitations Study Quality: Adequate ECG Rhythm: Sinus Conclusions: - Essentially normal study Findings Left Ventricle Normal left ventricular size, thickness, and systolic function. The visually estimated ejection fraction is between 55-60%. Spectral Doppler is indicative of a normal filling pattern. Right Ventricle Normal right ventricular cavity size and systolic function. Atria The left atrium is likely dilated. There is no evidence of interatrial shunt. The right atrium is normal in size. Aortic Valve Normal aortic valve structure and function. There is no aortic valve stenosis. There is no aortic valve regurgitation. Mitral Valve Normal mitral valve structure and function. There is trace mitral valve regurgitation. There is no mitral valve stenosis. Pulmonic Valve The pulmonic valve is likely normal. There is trace to mild pulmonic valve regurgitation. Tricuspid Valve Normal tricuspid valve structure. There is trace tricuspid valve regurgitation. The right ventricular systolic pressure is normal. The right ventricular systolic pressure is 20 mmHg. Normal right atrial pressure. There is no evidence of pulmonary hypertension. Great Vessels All visible segments of the aorta are normal in size. The pulmonary artery was not well visualized. There is no dilatation of the ascending aorta measuring 2.80 cm. Venous The inferior vena cava is mildly dilated and collapses greater than 50% with inspiration. Pericardium/Pleural There is no evidence of pericardial effusion. Prior Study Comparison No prior study available for comparison. Measurements 2D Linear Measurements IVSd: 0.71 0.6-0.9/0.6-1.0 cm LVIDd: 4.71 3.9-5.3/4.2-5.9 cm LVIDd Index: 2.98 2.4-3.2/2.2-3.1 cm/m2 LVIDs: 3.00 2.0-3.6 cm LVPWd: 0.78 0.7-1.1 cm LA Diam: 3.20 2.7-3.8/3.0-4.0 cm LAIDs Index: 2.03 1.5-2.3 cm/m2 LV Mass: 139.31 67-162/88-224 g LV Mass Index: 88.17 43-95/49-115 g/m2 LVOT Diam: 2.20 3.0+(-)1.3 cm 2D Systolic Function EF 4C: 60.70 >55% EF 2C: 59.10 >55% EF BiP: 58.60 >55% Mitral Valve MV Pk E: 0.73 MV PK A: 0.63 MV Decel Time: 217.00 E/A: 1.20 E'Lateral: 12.40 E'Medial: 10.60 E/E' Med: 6.90 E/E' Lat: 5.90 PHT: 64.00 MVA PHT: 3.44 Decel Smith: 3.35 Aortic Valve AoV Pk Shawn: 1.22 AoV Mn Shawn: 0.87 AoV VTI: 0.28 AoV Pk Grad: 6.00 Aov Mn Grad: 3.00 EMELY Cont.VTI: 2.87 LVOT LVOT Pk Shawn: 0.97 LVOT Mn Shawn: 0.68 LVOT VTI: 0.21 LVOT Pk Grad: 4.00 LVOT Mn Grad: 2.00 LVOT Diam: 2.20 LVOT Area: 3.80 Diastolic Function MV Pk E: 0.73 MV Pk A: 0.63 E/A: 1.20 E'Medial: 10.60 E/E' Med: 6.90 E' Laterial: 12.40 E/E' Lat: 5.90 Right Ventricle TAPSE (mm): 24.00 TVS' Shawn: 11.30 Tricuspid Valve TR Pk Shawn: 2.05 TR Pk Grad: 17.00 RA Press: 3.00 RVSP: 20.00 Great Vessels Aorta Sinus of Valsalva: 2.80 2.0-3.5 cm Ao Asc: 2.80 2.1-3.4 cm Pulmonary Valve PV Pk Shawn: 0.97 Peak PV Grad: 4.00 Updated in Other Vendor System with Status of Final Joseph Mackey MD electronically signed on 10/28/2024 10:46:49 AM with status of Final
== END ==
LOC: HO.CARD 07:42
PROVIDERS: PCP Internal Medicine; Visit Provider Internal Medicine
DX: R00.2 Palpitations (principal)
CPT/HCPCS: 93242; 93306

== ENCOUNTER → 2024-10-27 07:47 | Outpatient (BNV) | payer BC, SELFPAY | PROVIDERS: PCP Internal Medicine; Visit Provider Internal Medicine Cardiovascular Disease | DX: I37.1 Nonrheumatic pulmonary valve insufficiency (principal) | CPT/HCPCS: 93306 ==

== ENCOUNTER 2024-12-09 11:00 | Outpatient (AMB) | payer BC, SELFPAY ==
[2024-12-09 11:04] VITALS: BP 114/76; PULSE 73; RESP 18; TEMP 36.7; O2SAT 98; BMI 23.6
--- NOTE | 2024-12-09 11:04 | MHC.PC.OV ---
Vital Signs 12/09/24 11:04 Height 5 ft 2 in Weight 129 lb BMI 23.6 BP 114/76 Blood Pressure Location Lt brachial Position Sitting Respiration 18 Pulse 73 Pulse Source Pulse Oximeter Temp 98.1 F Temp Source Oral Pulse Oximetry (%) 98 Oxygen Delivery Method Room Air Intake Visit Reasons: 6 weeks f/u, resched Allergies shellfish Allergy (Unknown, Uncoded 12/09/24 11:21) anaphylaxis Shellfish- Scallops Allergy (Unknown, Uncoded 12/09/24 11:21) anaphylaxis Tobacco use date assessed: 12/09/24 Dental Screening Dental Screen Date: 09/13/24 HPI 6 weeks f/u, resched HPI Details Pt presents for follow-up of feeling chronically fatigued and tired worse since started working 11 hr shifts. Patient reports getting only 6 hour of sleep and has not been exercising regularly as before because of her work schedule. Patient denies dyspnea on exertion pain chest pain palpitations PND orthopnea. Blood work ,echocardiogram and Holter monitor were normal. Patient has been eating well-balanced diet and taking vitamin-D supplement, [facility] Medical History Colonoscopy refused Osteopenia Normal breast exam Normal colonoscopy Normal gynecologic examination Osteoarthritis of shoulders, bilateral Surgical History H/O LEEP Tubal ligation status Social History Household Members Other:: lives with [facility], Housing: House Patient Tobacco Use Status: Former Tobacco user Years Smoked: 30 yrs e-Cigarette/Vaping Use: Never Used service: No Current occupational status: employed Cognitive needs: No Hearing needs: No Vision needs: Yes Questionnaire PHQ-9 Over the last 2 weeks, how often have you been bothered by any of the following problems? 1. Little interest or pleasure in doing things: several days 2. Feeling down, depressed, or hopeless: not at all 3. Trouble falling or staying asleep, or sleeping too much: not at all 4. Feeling tired or having little energy: several days 5. Poor appetite or overeating: not at all 6. Feeling bad about yourself - or that you are a failure or have let yourself or your family down: not at all 7. Trouble concentrating on things, such as reading the newspaper or watching television: not at all 8. Moving or speaking so slowly that other people could have noticed. Or the opposite - being so fidgety or restless that you have been moving around a lot more than usual: not at all 9. Thoughts that you would be better off or of hurting yourself in some way: not at all Total score: 2 Depression Screening Interpretation: Negative Depression Screening Done: Yes Source: Developed by Drs. Esvin Rodriguez, Lisbet Upton, Deni Caceres and colleagues, with an educational juan m from [employer]. Thrive Questionnaire Date Thrive assessed: 09/11/24 I am a: Patient What is your living situation today?: I have a steady place to live Within the past 12 months, did the food you bought not last and you didn't have the money to get more?: Never true Within the past 12 months, did you worry whether your food would run out before you got money to buy more?: Never true Do you have trouble paying for medicines?: No Do you have trouble getting transportation to medical appointments?: No Do you have trouble paying your heating and electricity bill?: No Do you have trouble taking care of your child, family member or friend?: No Do you have trouble with day-to-day activities such as bathing, preparing meals, shopping, managing finances, etc.?: No Are you currently unemployed and looking for a job?: No Are you interested in more education?: No Please select the resources that you would like help with: None Currently or been in a relationship where the following occur: I choose not to answer THRIVE Score: 0 JOB-7 AMB Questionnaire JOB-7 Date JOB - 7 assessed: 09/13/24 Feeling nervous, anxious, or on edge: 0 = Not at all Not being able to stop or control worryin = Not at all Worrying too much about different things: 0 = Not at all Trouble relaxin = Not at all Being so restless that it is hard to sit still: 0 = Not at all Becoming easily annoyed or irritable: 0 = Not at all Feeling afraid as if something awful might happen: 0 = Not at all Total JOB-7 score (0-4 normal; 5-9 mild; 10-14 moderate; 15-21 severe): 0 Source: Developed by Drs. Esvin Rodriguez, Lisbet Upton, Deni Caceres and colleagues, with an educational juan m from [employer]. Review of Systems Const All systems reviewed & are unremarkable except as noted in HPI and below Eyes Reports no additional complaints ENT Reports no additional complaints Card Reports no additional complaints Resp Reports no additional complaints GI Reports no additional complaints Reports no additional complaints Physical exam (Primary Care) Vital Signs: Last Vital Signs Temp 98.1 F 12/09/24 11:04 Pulse 73 12/09/24 11:04 Resp 18 12/09/24 11:04 BP 114/76 12/09/24 11:04 Pulse Ox 98 12/09/24 11:04 Oxygen Delivery Method Room Air 12/09/24 11:04 BMI result Body Mass Index 23.6 Tobacco/Smoking Status: Tobacco use Status Tobacco use date assessed 12/09/24 12/09/24 11:22 Patient Tobacco Use Status Former Tobacco user 12/09/24 11:04 e-Cigarette/Vaping Use Never Used 12/09/24 11:04 PHQ-9: PHQ-9 Score PHQ-9: Total score 2 12/09/24 11:22 Depression Screening Interpretation: Negative Thrive Assessment: Date of Thrive Assessment Date Thrive assessed 09/11/24 12/09/24 11:04 Currently or been in a relationship where the following occur: I choose not to answer Const General: no acute distress HENMT Head: Yes normal to inspection Face and sinus: Yes normal facial exam Eyes General: appearance normal, both eyes and all related structures Neck Neck: Yes supple Resp Effort & Inspection: normal respiratory effort Auscultation: clear to auscultation bilaterally Cardio Rhythm: regular rhythm Heart sounds: S1 normal heart sound present and S2 normal heart sound present GI Inspection: Yes normal to inspection Palpation (GI): Soft to palpation Auscultation: normal bowel sounds Coding Level of Care Code Est Pt Level 3 (02604) Diagnoses Fatigue R53.83 Assessment & Plan Assessment & Plan (1) Fatigue: Code(s): R53.83 - Other fatigue Category: Medical Plan: related to working 3rd shift 11 hours days, well-balanced diet regular physical activity getting enough sleep discussed with the patient
--- OUTSIDE RECORDS SUMMARY | 2024-12-09 12:47 | XMS_ITS | Clinical Summary ---
[facility] Address [address] [place] [address] Care Team Providers Care Hydrographic Surveyor Name Role Phone Nadege Calderon MD Primary [...] CERVICAL BIOPSY W/ LOOP ELECTRODE EXCISION PROCEDURE: [place] CONIZATION CERVIX W/WO D&C RPR ELTRD EXC; [...] - Risk 60-74 years 1-dose series) 2022 Colorectal Cancer Screening: Colonoscopy 03/22/2024 HIV Screening 03/22/2024 Social Influencers of Health Screening 03/22/2024 Depression Screening 03/30/2024 COVID-19 Vaccine (1 - 2023-2 5 season) 2024 Influenza Vaccine (#1) 2024 5, 01/06/2014, 12/28/2012 [...] Recently Relevant to Health Maintenance Care Teams Hydrographic Surveyor Relationship Specialty Start Date End Date Nadege Calderon MD [address] [place] [address] PCP - General 08/03/01
== END 2024-12-09 11:40 | disposition home or self-care (01) ==
LOC: HO.HMCC 11:01
PROVIDERS: PCP Internal Medicine; Visit Provider Internal Medicine
DX: R53.83 Other fatigue (principal)